=== PATIENT | male | born 1995 | race Caucasian/White ===

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

== ENCOUNTER 2018-11-01 14:44 | Emergency (ER) | payer BC, OTHER ==
[2018-11-01 14:50] VITALS: TEMP 98.4
[2018-11-01] MEDS ORDERED: IBUPROFEN 600 MG TAB PO STA (14:58)
--- NOTE | 2018-11-01 17:18 | ED ---
General Adult HPI - General Chief complaint: Extremity Injury, Upper Stated complaint: Elbow swelling Time Seen by Provider: 11/01/18 14:52 Source: patient Mode of arrival: ambulatory Limitations: no limitations - History of Present Illness Initial comments: Patient is 23-year-old male presenting to emergency Department with a chief complaint of right elbow swelling. Patient reports 3 days ago he fell on his right elbow and had a minor laceration. Patient reports since the incident he has developed swelling of the right elbow. Patient reports small limitation with range of motion and full extension. Patient reports mild erythema but no changes in temperature. Patient denies any other skin discoloration. Patient denies fevers, night sweats or chills. Patient denies any nausea or vomiting. Patient reports taking [id number] analgesics with minimal improvement - Related Data Previous Rx's Medication Instructions Recorded Penicillin V Potassium [Pen Vee K] 500 mg PO BID #18 tab 08/19/16 predniSONE 50 mg PO DAILY #3 tab 08/21/16 Cephalexin [Keflex] 500 mg PO BID #10 cap 11/01/18 Allergies Allergy/AdvReac Type Severity Reaction Status Date / Time No Known Allergies Allergy Verified 11/01/18 14:50 Review of Systems ROS Statement: Those systems with pertinent positive or pertinent negative responses have been documented in the HPI. ROS Other: All systems not noted in ROS Statement are negative. Past Medical History Past Medical History: No Reported History History of Any Multi-Drug Resistant Organisms: None Reported Past Surgical History: Ear Surgery, Orthopedic Surgery Additional Past Surgical History / Comment(s): left wrist Past Psychological History: No Psychological Hx Reported Smoking Status: Never smoker Past Alcohol Use History: Occasional Past Drug Use History: None Reported General Exam - General Exam Comments Initial Comments: General: Well-developed well-nourished distress HEENT: Normocephalic/atraumatic, PERLL, pharynx erythema, swallowing well, EAC no erythema, no exudates, TM clear, no cervical lymph nodes Neck: Supple, nontender, trachea midline Chest/Lungs: Normal respirations, no signs of respiratory distress clear to auscultation bilaterally no wheezes, rales, rhonchi Cardiac: Regular rate and rhythm, normal S1-S2, no murmurs rubs or gallops Abdomen/GI: Soft nontender, bowel sounds equal or quadrant x4, no guarding, no rebound no CVA tenderness Musculoskeletal: Tenderness at the right elbow, edema at the right elbow with mild erythema no ecchymosis, no discharge from a healing laceration site, normal capillary refill, +2 ulnar radial pulses bilaterally. Skin: Warmth, no rashes or lesions, no cyanosis or diaphoresis Neurologic: AAO x 3, CN 2-12 intact, Psychiatric: Mood and affect normal, judgment normal Limitations: no limitations Course Vital Signs 11/01/18 11/01/18 14:47 17:29 Temperature 98.4 F Pulse Rate 95 84 Respiratory 16 18 Rate Blood Pressure 145/91 140/80 O2 Sat by Pulse 100 95 Oximetry Medical Decision Making - Medical Decision Making Patient is a 23-year-old male presenting to emergency Department with a chief complaint of right elbow swelling. X-ray of the right elbow is negative for signs of osteomyelitis and it only is indicative of soft tissue swelling. Based on physical examination I suspect the patient to have developed a recurrent bursitis. Patient advised to apply ice compress multiple times a day throughout the day. Patient also be discharged with a short course of Keflex. I have low suspicion for septic bursitis due to only small amounts of pain and mild erythema. Patient also has almost full range of motion. Patient advised to follow-up with orthopedics if symptoms not improved. Patient advised to alternate between Tylenol and ibuprofen for pain control. Strict return parameters were thoroughly discussed with patient was understanding and agreeable. Case discussed with physician. Disposition Clinical Impression: Elbow pain, right, Swelling of joint, elbow, right Disposition: HOME SELF-CARE Condition: Stable Instructions (If sedation given, give patient instructions): Elbow Sprain (ED) Additional Instructions: Please see prescribe medication as directed. Please follow primary care. P lease return to emergency prisms worsen. Prescriptions: Cephalexin [Keflex] 500 mg PO BID #10 cap Is patient prescribed a controlled substance at d/c from ED?: No Referrals: None,Stated [Primary Care Provider] - 1-2 days Time of Disposition: 17:17
[2018-11-01 17:34] VITALS: BP 140/80; PULSE 84; RESP 18
--- NOTE | 2018-11-01 21:51 | XR ---
EXAMINATION TYPE: XR elbow complete RT DATE OF EXAM: 11/01/2018 COMPARISON: NONE HISTORY: Pain, swelling, redness, rule out infection TECHNIQUE: 2 views of the right elbow FINDINGS: No fracture or malalignment. No capsular distention. No osseous erosive change. Soft tissue prominence overlying the olecranon with heterogenous appearance of fat planes, no subcutaneous emphy sema. IMPRESSION: Soft tissue prominence overlying the olecranon without underlying bony changes to suggest osteomyelitis.
== END 2018-11-01 17:29 | disposition home or self-care (01) ==
LOC: EC 14:44
DX: M25.421 Effusion, right elbow (principal); S51.011D Laceration without foreign body of right elbow, subsequent encounter; W19.XXXD Unspecified fall, subsequent encounter
CPT/HCPCS: 99283

== ENCOUNTER 2018-12-31 08:49 | Emergency (ER) | payer BC ==
[2018-12-31 09:01] VITALS: TEMP 98
--- NOTE | 2018-12-31 09:36 | ED ---
General Adult HPI - General Chief complaint: Wound/Laceration Stated complaint: laceration Time Seen by Provider: 12/31/18 09:01 Source: patient, police, EMS, RN notes reviewed Mode of arrival: EMS Limitations: no limitations - History of Present Illness Initial comments: Patient is a 23-year-old male presenting to the emergency department with police escort for medical clearance. Patient is agitated and persistently yelling at the police. Patient does threaten the police. Patient is difficult to redirect to ask questions. After persistent questioning, patient will start to answer questions and then becomes again agitated at the officers. Patient limits answering questions. Patient does limited exam. Patient denies alcohol or street drug use. Patient states he was wrestling with his friend that caused injuries to his head. Patient states that it all did not happen tonight. Patient states his tetanus immunization is up-to-date. Patient refuses repair of eyebrow laceration. - Related Data Home Medications Medication Instructions Recorded Confirmed No Known Home Medications 12/31/18 12/31/18 Allergies Allergy/AdvReac Type Severity Reaction Status Date / Time No Known Allergies Allergy Verified 11/01/18 14:50 Review of Systems ROS Statement: Those systems with pertinent positive or pertinent negative responses have been documented in the HPI. ROS Other: All systems not noted in ROS Statement are negative. Constitutional: Denies: fever Eyes: Denies: eye pain ENT: Denies: ear pain Respiratory: Denies: cough Cardiovascular: Denies: chest pain Endocrine: Denies: fatigue Gastrointestinal: Denies: abdominal pain Genitourinary: Denies: urgency Musculoskeletal: Denies: back pain Skin: Denies: rash Neurological: Denies: headache, weakness Past Medical History Past Medical History: No Reported History History of Any Multi-Drug Resistant Organisms: None Reported Past Surgical History: Ear Surgery, Orthopedic Surgery Additional Past Surgical History / Comment(s): left wrist Past Psychological History: No Psychological Hx Reported Smoking Status: Never smoker Past Alcohol Use History: Occasional Past Drug Use History: None Reported General Exam Limitations: physical limitation (Patient limits exam) General appearance: alert Head exam: Present: other (Abrasions and lacerations to the forehead) Eye exam: Present: PERRL, other (Patient will not allow testing for extraocular muscles. Mild subconjunctival hemorrhage on the left) Neck exam: Absent: tenderness Respiratory exam: Present: normal lung sounds bilaterally Cardiovascular Exam: Present: regular rate, normal rhythm GI/Abdominal exam: Present: soft. Absent: tenderness Extremities exam: Present: normal inspection Back exam: Present: normal inspection Neurological exam: Present: alert, oriented X3, other (Patient able to stand up without difficulty). Absent: motor sensory deficit Psychiatric exam: Present: agitated Skin exam: Present: abrasion (Forehead and left neck and back), other (Small forehead laceration, 7-8 mm. Left eyebrow laceration approximately 1-1.5 cm) Course Vital Signs 12/31/18 12/31/18 08:54 11:02 Temperature 98.0 F Pulse Rate 76 62 Respiratory 20 16 Rate Blood Pressure 136/76 136/79 O2 Sat by Pulse 99 99 Oximetry - Reevaluation(s) Reevaluation #1: 12/31/18 09:41 Cannot rule out head injury on physical exam secondary to patient noncompliance with history and physical. Patient is refusing head CT at this time however this needs to be done to rule out any potential head injury. Patient is also refusing any testing for alcohol. Medical Decision Making - Medical Decision Making Patient reevaluated and alert and appropriate. Patient is able to ambulate to and from the bathroom. Patient is no longer agitated. Patient will be discharged to police custody. Patient still refuses laceration repair. - Lab Data Result diagrams: 12/31/18 10:36 12/31/18 10:36 Lab Results 12/31/18 12/31/18 12/31/18 Range/Units 10:35 10:36 10:36 WBC 12.5 H (3.8-10.6) k/uL RBC 5.04 (4.30-5.90) m/uL Hgb 15.9 (13.0-17.5) gm/dL Hct 46.9 (39.0-53.0) % MCV 93.2 (80.0-100.0) fL MCH 31.6 (25.0-35.0) pg MCHC 33.9 (31.0-37.0) g/dL RDW 12.3 (11.5-15.5) % Plt Count 245 (150-450) k/uL Neutrophils % 81 % Lymphocytes % 11 % Monocytes % 7 % Eosinophils % 1 % Basophils % 0 % Neutrophils # 10.1 H (1.3-7.7) k/uL Lymphocytes # 1.3 (1.0-4.8) k/uL Monocytes # 0.8 (0-1.0) k/uL Eosinophils # 0.1 (0-0.7) k/uL Basophils # 0.1 (0-0.2) k/uL PT (9.0-12.0) sec INR (<1.2) APTT (22.0-30.0) sec Sodium 149 H (137-145) mmol/L Potassium 4.0 (3.5-5.1) mmol/L Chloride 118 H (98-107) mmol/L Carbon Dioxide 21 L (22-30) mmol/L Anion Gap 10 mmol/L BUN 8 L (9-20) mg/dL Creatinine 0.91 (0.66-1.25) mg/dL Est GFR (CKD-EPI)AfAm >90 (>60 ml/min/1.73 sqM) Est GFR (CKD-EPI)NonAf >90 (>60 ml/min/1.73 sqM) Glucose 109 H (74-99) mg/dL Calcium 8.9 (8.4-10.2) mg/dL Total Bilirubin 0.3 (0.2-1.3) mg/dL AST 39 (17-59) U/L ALT 12 L (21-72) U/L Alkaline Phosphatase 53 (38-126) U/L Total Protein 7.9 (6.3-8.2) g/dL Albumin 4.7 (3.5-5.0) g/dL Urine Color Colorless Urine Appearance Clear (Clear) Urine pH 5.5 (5.0-8.0) Ur Specific [place] 1.003 (1.001-1.035) Urine Protein Negative (Negative) Urine Glucose (UA) Negative (Negative) Urine Ketones Negative (Negative) Urine Blood Trace H (Negative) Urine Nitrite Negative (Negative) Urine Bilirubin Negative (Negative) Urine Urobilinogen <2.0 (<2.0) mg/dL Ur Leukocyte Esterase Negative (Negative) Urine WBC <1 (0-5) /hpf Urine Opiates Screen Not Detected (NotDetected) Ur Oxycodone Screen Not Detected (NotDetected) Urine Methadone Screen Not Detected (NotDetected) Ur Propoxyphene Screen Not Detected (NotDetected) Ur Barbiturates Screen Not Detected (NotDetected) U Tricyclic Antidepress Not Detected (NotDetected) Ur Phencyclidine Scrn Not Detected (NotDetected) Ur Amphetamines Screen Not Detected (NotDetected) U Methamphetamines Scrn Not Detected (NotDetected) U Benzodiazepines Scrn Not Detected (NotDetected) Urine Cocaine Screen Detected H (NotDetected) U Marijuana (THC) Screen Detected H (NotDetected) Serum Alcohol 220 H* mg/dL 12/31/18 Range/Units 11:18 WBC (3.8-10.6) k/uL RBC (4.30-5.90) m/uL Hgb (13.0-17.5) gm/dL Hct (39.0-53.0) % MCV (80.0-100.0) fL MCH (25.0-35.0) pg MCHC (31.0-37.0) g/dL RDW (11.5-15.5) % Plt Count (150-450) k/uL Neutrophils % % Lymphocytes % % Monocytes % % Eosinophils % % Basophils % % Neutrophils # (1.3-7.7) k/uL Lymphocytes # (1.0-4.8) k/uL Monocytes # (0-1.0) k/uL Eosinophils # (0-0.7) k/uL Basophils # (0-0.2) k/uL PT 11.3 (9.0-12.0) sec INR 1.1 (<1.2) APTT 22.3 (22.0-30.0) sec Sodium (137-145) mmol/L Potassium (3.5-5.1) mmol/L Chloride (98-107) mmol/L Carbon Dioxide (22-30) mmol/L Anion Gap mmol/L BUN (9-20) mg/dL Creatinine (0.66-1.25) mg/dL Est GFR (CKD-EPI)AfAm (>60 ml/min/1.73 sqM) Est GFR (CKD-EPI)NonAf (>60 ml/min/1.73 sqM) Glucose (74-99) mg/dL Calcium (8.4-10.2) mg/dL Total Bilirubin (0.2-1.3) mg/dL AST (17-59) U/L ALT (21-72) U/L Alkaline Phosphatase (38-126) U/L Total Protein (6.3-8.2) g/dL Albumin (3.5-5.0) g/dL Urine Color Urine Appearance (Clear) Urine pH (5.0-8.0) Ur Specific [place] (1.001-1.035) Urine Protein (Negative) Urine Glucose (UA) (Negative) Urine Ketones (Negative) Urine Blood (Negative) Urine Nitrite (Negative) Urine Bilirubin (Negative) Urine Urobilinogen (<2.0) mg/dL Ur Leukocyte Esterase (Negative) Urine WBC (0-5) /hpf Urine Opiates Screen (NotDetected) Ur Oxycodone Screen (NotDetected) Urine Methadone Screen (NotDetected) Ur Propoxyphene Screen (NotDetected) Ur Barbiturates Screen (NotDetected) U Tricyclic Antidepress (NotDetected) Ur Phencyclidine Scrn (NotDetected) Ur Amphetamines Screen (NotDetected) U Methamphetamines Scrn (NotDetected) U Benzodiazepines Scrn (NotDetected) Urine Cocaine Screen (NotDetected) U Marijuana (THC) Screen (NotDetected) Serum Alcohol mg/dL - Radiology Data Radiology results: image reviewed (Computed tomography scan of the brain reveals no acute process) Disposition Clinical Impression: Alcohol intoxication, Agitation Disposition: HOME SELF-CARE Condition: Stable Instructions (If sedation given, give patient instructions): Head Injury (ED), Alcohol Intoxication (ED), Cocaine Abuse (ED) Additional Instructions: Discontinue alcohol and cocaine use. Discharged to police custody. Please follow-up with primary care physician in the next couple days for recheck. Twice daily wash all wounds with soap and water, apply antibiotic ointment, and bandage. Is patient prescribed a controlled substance at d/c from ED?: No Referrals: Andres Harris MD [STAFF PHYSICIAN] - 1-2 days Time of Disposition: 13:04
[2018-12-31] MEDS ORDERED: ZIPRASIDONE 20 MG VIAL IM STA (09:37)
[2018-12-31] MEDS ORDERED: LORazepam 2 MG/ML INJ IM STA (09:37)
[2018-12-31] MEDS ORDERED: SODIUM CHLORIDE 0.9% 500 ML 500 ML IV STA (09:38)
[2018-12-31 10:52] LABS: Basophils # (A) 0.1 k/uL (0-0.2); Basophils % (A) 0 %; Eosinophils # (A) 0.1 k/uL (0-0.7); Eosinophils % (A) 1 %; HCT 46.9 % (39.0-53.0); HGB 15.9 gm/dL (13.0-17.5); Lymphocytes # (A) 1.3 k/uL (1.0-4.8); Lymphocytes % (A) 11 %; MCH 31.6 pg (25.0-35.0); MCHC 33.9 g/dL (31.0-37.0); MCV 93.2 fL (80.0-100.0); Mean Platelet Volume 6.2; Monocytes # (A) 0.8 k/uL (0-1.0); Monocytes % (A) 7 %; Neutrophils # (A) 10.1 k/uL (1.3-7.7); Neutrophils % (A) 81 %; Platelet Count 245 k/uL (150-450); RBC 5.04 m/uL (4.30-5.90); RDW 12.3 % (11.5-15.5); WBC 12.5 k/uL (3.8-10.6)
[2018-12-31 11:03] VITALS: RESP 16
[2018-12-31 11:05] LABS: Appearance,Urine Clear (Clear); Bilirubin,Urine Negative (Negative); Blood,Urine Trace (Negative); Color,Urine Colorless; Glucose,Urine (UA) Negative (Negative); Ketones,Urine Negative (Negative); Leukocyte Esterase,Urine Negative (Negative); Nitrite,Urine Negative (Negative); PH, Urine 5.5 (5.0-8.0); Protein,Urine Negative (Negative); Specific Gravity,Urine 1.003 (1.001-1.035); Urobilinogen,Urine <2.0 mg/dL (<2.0); WBC,Urine <1 /hpf (0-5)
[2018-12-31 11:14] LABS: ALT 12 U/L (21-72); AST 39 U/L (17-59); African American GFR (CKD) >90 (>60 ml/min/1.73 sqM); Albumin 4.7 g/dL (3.5-5.0); Alkaline Phosphatase 53 U/L (38-126); Anion Gap 10 mmol/L; Blood Urea Nitrogen 8 mg/dL (9-20); Calcium 8.9 mg/dL (8.4-10.2); Carbon Dioxide 21 mmol/L (22-30); Chloride 118 mmol/L (98-107); Glucose 109 mg/dL (74-99); Sodium 149 mmol/L (137-145); Total Bilirubin 0.3 mg/dL (0.2-1.3); Total Protein 7.9 g/dL (6.3-8.2)
[2018-12-31 11:18] LABS: Amphetamine Screen,Urine Not Detected (NotDetected); Barbiturate Screen,Urine Not Detected (NotDetected); Benzodiazepines Screen,Urine Not Detected (NotDetected); Cocaine Screen,Urine Detected (NotDetected); Methadone Screen, Urine Not Detected (NotDetected); Opiate Screen,Urine Not Detected (NotDetected); Oxycodone Screen, Urine Not Detected (NotDetected); Phencyclidine Screen,Urine Not Detected (NotDetected); Tricyclic Antidepressant,Urine Not Detected (NotDetected); Urn Cannabinoid Scrn Detected (NotDetected)
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
[2018-12-31 11:24] LABS: Alcohol 220 mg/dL
[2018-12-31 11:50] LABS: INR 1.1 (<1.2); Partial Thromboplastin Time 22.3 sec (22.0-30.0); Prothrombin Time 11.3 sec (9.0-12.0)
[2018-12-31 13:03] VITALS: BP 141/83; PULSE 70
== END 2018-12-31 13:21 | disposition home or self-care (01) ==
LOC: EC 08:49
DX: F10.129 Alcohol abuse with intoxication, unspecified (principal); R45.1 Restlessness and agitation; S01.112A Laceration without foreign body of left eyelid and periocular area, initial encounter; S01.81XA Laceration without foreign body of other part of head, initial encounter; H11.32 Conjunctival hemorrhage, left eye; S10.91XA Abrasion of unspecified part of neck, initial encounter; S30.810A Abrasion of lower back and pelvis, initial encounter; Y90.7 Blood alcohol level of 200-239 mg/100 ml; Y04.8XXA Assault by other bodily force, initial encounter; Y93.72 Activity, wrestling; Y92.009 Unspecified place in unspecified non-institutional (private) residence as the place of occurrence of the external cause; Z53.20 Procedure and treatment not carried out because of patient's decision for unspecified reasons
CPT/HCPCS: 99284; 96360; 96361 ×2; 96372 ×2; 36415; 80053; 85025; 85610; 85730; 81001; 80306; 80320; 70450; J2060; J3486

== ENCOUNTER 2020-12-10 02:37 | Emergency (ER) | payer BC ==
[2020-12-10 02:44] VITALS: BP 129/71; PULSE 116; RESP 22; TEMP 99.1
[2020-12-10] MEDS ORDERED: PROPARACAINE 0.5% OPHTH DROPS 15 ML BTL BOTH EYES STA (03:30)
[2020-12-10] MEDS ORDERED: FLUORESCEIN STRIPS 1 MG STRIP BOTH EYES ONE (03:31)
[2020-12-10] MEDS ORDERED: DIPH,PERTUS(ACELL)TETVAC-LF 0.5 ML VIAL IM ONE (03:58)
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
== END 2020-12-10 04:11 | disposition home or self-care (01) ==
LOC: EC 02:37
DX: S10.91XA Abrasion of unspecified part of neck, initial encounter (principal); S30.810A Abrasion of lower back and pelvis, initial encounter; S40.811A Abrasion of right upper arm, initial encounter; S20.311A Abrasion of right front wall of thorax, initial encounter; S20.313A Abrasion of bilateral front wall of thorax, initial encounter; S60.411A Abrasion of left index finger, initial encounter; S60.512A Abrasion of left hand, initial encounter; S05.90XA Unspecified injury of unspecified eye and orbit, initial encounter; M79.651 Pain in right thigh; F17.200 Nicotine dependence, unspecified, uncomplicated; Z23 Encounter for immunization; Y08.89XA Assault by other specified means, initial encounter; Y92.149 Unspecified place in prison as the place of occurrence of the external cause
CPT/HCPCS: 90471; 90715; 99283

== ENCOUNTER 2021-07-04 10:37 | Emergency (ER) | payer BC ==
[2021-07-04 10:40] VITALS: TEMP 97.4
[2021-07-04] MEDS ORDERED: CIPROFLOXACIN-DEXAMETH 0.3-0.1% DROPS 7.5 ML BTL LEFT EAR STA (11:33)
--- NOTE | 2021-07-04 11:37 | ED ---
ENT HPI - General Chief complaint: ENT Stated complaint: ear infection Time Seen by Provider: 07/04/21 11:01 Source: patient, RN notes reviewed Mode of arrival: ambulatory Limitations: no limitations - History of Present Illness Initial comments: 26-year-old male presents emergency Department chief complaint left ear pain and states that started overnight severe pain but states he feels better but now there is some drainage from his left ear. He states he had to 20 as an . Patient tender recent surgeries. Denies any chest pain shortness breath nasal congestion at this time he states he had covert over a week ago. Patient offers no other complaints. - Related Data Previous Rx's Medication Instructions Recorded Amoxicillin 875 mg PO Q12HR #20 tablet 07/04/21 Allergies Allergy/AdvReac Type Severity Reaction Status Date / Time No Known Allergies Allergy Verified 07/04/21 10:40 Review of Systems ROS Statement: Those systems with pertinent positive or pertinent negative responses have been documented in the HPI. ROS Other: All systems not noted in ROS Statement are negative. Past Medical History Past Medical History: No Reported History History of Any Multi-Drug Resistant Organisms: None Reported Past Surgical History: Ear Surgery, Orthopedic Surgery Additional Past Surgical History / Comment(s): left wrist Past Psychological History: Anxiety Smoking Status: Current every day smoker Past Alcohol Use History: Occasional Past Drug Use History: Marijuana General Exam Limitations: no limitations General appearance: alert, in no apparent distress Head exam: Present: atraumatic, normocephalic, normal inspection Eye exam: Present: normal appearance, PERRL, EOMI. Absent: scleral icterus, conjunctival injection, periorbital swelling ENT exam: Present: normal oropharynx, mucous membranes moist. Absent: TM's normal bilaterally (Left TM erythematous, fluid noted, there is purulent drainage) Neck exam: Present: normal inspection, full ROM. Absent: tenderness, meningismus, lymphadenopathy Respiratory exam: Present: normal lung sounds bilaterally. Absent: respiratory distress, wheezes, rales, rhonchi, stridor Cardiovascular Exam: Present: regular rate, normal rhythm, normal heart sounds. Absent: systolic murmur, diastolic murmur, rubs, gallop, clicks Course Vital Signs 07/04/21 10:38 Temperature 97.4 F L Pulse Rate 85 Respiratory 20 Rate Blood Pressure 122/72 O2 Sat by Pulse 99 Oximetry Medical Decision Making - Medical Decision Making 26-year-old presented for ear pain patient has otitis media with rupture patient was placed on oral and ice along with drops return parameters were discussed. Disposition Clinical Impression: Otitis media Disposition: HOME SELF-CARE Condition: Stable Instructions (If sedation given, give patient instructions): Earache (ED) Additional Instructions: Please return to the Emergency Department if symptoms worsen or any other concerns. USe Ciprodex eardrops 4 drops twice daily for 1 week Prescriptions: Amoxicillin 875 mg PO Q12HR #20 tablet Is patient prescribed a controlled substance at d/c from ED?: No Referrals: None,Stated [Primary Care Provider] - 1-2 days Time of Disposition: 11:37
[2021-07-04 12:00] VITALS: BP 118/60; PULSE 68; RESP 18
== END 2021-07-04 12:00 | disposition home or self-care (01) ==
LOC: EC 10:37
DX: F17.200 Nicotine dependence, unspecified, uncomplicated (principal); H66.92 Otitis media, unspecified, left ear
CPT/HCPCS: 99283